=== PATIENT | female | born 1970 | race Caucasian/White ===

== ENCOUNTER → 2018-03-12 | Outpatient (CLI) | payer SELFPAY | LOC: COL.RAD 07:54 | DX: R10.31 Right lower quadrant pain (principal); G89.29 Other chronic pain ==

== ENCOUNTER → 2018-03-26 | Outpatient (CLI) | payer OTHER | LOC: COL.RAD 09:34 | DX: M47.816 Spondylosis without myelopathy or radiculopathy, lumbar region (principal) ==

== ENCOUNTER → 2020-04-27 | Outpatient (CLI) | payer OTHER | LOC: COL.RAD 14:00 | DX: M25.511 Pain in right shoulder (principal) ==

== ENCOUNTER → 2020-07-15 | Outpatient (CLI) | payer OTHER | END | disposition still patient (30) | LOC: COL.RAD 08:00 | DX: M17.11 Unilateral primary osteoarthritis, right knee (principal); S83.241A Other tear of medial meniscus, current injury, right knee, initial encounter ==